=== PATIENT | female | born 1990 | race Caucasian/White ===

== ENCOUNTER 2024-08-23 08:07 | Emergency (ER) | payer OTHER ==
[2024-08-23 08:21] VITALS: BP 111/73; PULSE 93; RESP 20; TEMP 98.1; BMI 20.5
[2024-08-23] MEDS ORDERED: METHOCARBAMOL 500 MG TABLET ONE (08:50)
[2024-08-23] MEDS ORDERED: KETOROLAC TROMETHAMINE 15 MG/ML VIAL ONE (08:51)
[2024-08-23] MEDS ORDERED: ACETAMINOPHEN 500 MG TABLET (FP) ONE (08:51)
[2024-08-23] MEDS: KETOROLAC TROMETHAMINE 15 MG/ML VIAL IM ONE (08:58)
[2024-08-23] MEDS: METHOCARBAMOL 500 MG TABLET PO ONE (08:59)
[2024-08-23] MEDS: ACETAMINOPHEN 500 MG TABLET (FP) PO ONE (08:59)
[2024-08-23 19:41] LABS: HIV INTERPRETATION NEGATIVE (NEGATIVE)
== END 2024-08-23 09:15 | disposition home or self-care (01) ==
LOC: JER 08:07
PROC: 3E0133Z Introduction of Anti-inflammatory into Subcutaneous Tissue, Percutaneous Approach (ICD-10-PCS; principal; 2024-08-23)
DX: M54.16 Radiculopathy, lumbar region (principal); M54.41 Lumbago with sciatica, right side
CPT/HCPCS: 36415; 86803; 87389; 96372; 99284-25